=== PATIENT | female | born 1970 | race Caucasian/White ===

== ENCOUNTER 2017-03-04 17:21 | Observation (INO) | payer OTHER ==
[~2017-03-04] VITALS: Ht 165.1 cm; Wt 100.0 kg
[~2017-03-04 17:21] MED LIST: ONDA4TAB7 OR
[2017-03-04 17:24] VITALS: BP 133/84; PULSE 74; RESP 16; TEMP 98; O2SAT 9; O2SAT 99
[2017-03-04 17:36] VITALS: BP 124/72; PULSE 94; PULSE 97; RESP 18; O2SAT 96
[2017-03-04] MEDS ORDERED: SODIUM CHLORIDE 0.9% FLUSH 10 ML FLUSH IVF PRN (17:45)
[2017-03-04] MEDS ORDERED: LORazepam 2 MG/ML VIAL IV PUSH ONE (17:45)
[2017-03-04] MEDS ORDERED: ASPIRIN 81 MG CHEW TAB PO ONE (17:45)
--- NOTE | 2017-03-04 17:51 | PD ---
HPI . Chest pain Chief Complaint: Chest Pain Time Seen by Provider: 17:34 Travel History International Travel<30 days: No Contact w/Intl Traveler<30days: No Traveled to known affect area: No History of Present Illness HPI Patient presents with chief complaint of chest pain. She states that she was just visiting with her sons for Mother's Day when she developed the chest pain. She reports some lightheadedness prior to the onset of the chest pain. The chest pain started an hour ago. It has been continuous. She rates her pain as 0/10. She reports associated diaphoresis and nausea. She denies any previous similar history. She has not noticed any exacerbating or relieving factors. She does state that she's noticed that her dizziness is worse on lying down and bilateral sitting up. She does describe the dizziness as spinning. Pertinent history is breast cancer. She states that she echos periodically to assess the function of her heart. She believes that her last echo was about 2 years ago and was normal. She states that these are all done at a [facility] in [place]. [facility] Past Medical History Cancer: Yes (BREAST) Cirrhosis: No Diminished Hearing: No Immunizations Current: Yes Sickle Cell Disease: No Tetanus Vaccination: Unknown Influenza Vaccination: No ?: Not LMP: 2007 Past Surgical History Hysterectomy: Yes Other Surgery: Yes (BILATERAL MASTECTOMY WITH RECONSTRUCTIONS ) Social History Alcohol Use: Yes (rarely) Tobacco Use: No (Quit ) Substance Use: No Allergies-Medications (Allergen,Severity, Reaction): Coded Allergies: Hydrocodone (Verified Allergy, Unknown, n/v, 03/04/17) Reported Meds & Prescriptions Reported Meds & Active Scripts Active Reported Naproxen 500 Mg Tab 500 Mg PO BID Levothyroxine (Levothyroxine Sodium) 150 Mcg Tab 150 Mcg PO DAILY Melatonin 3 Mg Tab 3 Mg PO HS Zantac (Ranitidine HCl) 150 Mg Tab 150 Mg PO BID Effexor (Venlafaxine HCl) 75 Mg Tab 75 Mg PO DAILY 14 Days After the 14 days increase doseage to 2 tablets (150mg) daily x 16 days Amphetamine-Dextroamphetamine 10 Mg Tab 5 Mg PO DAILY Avoid late evening doses. Space doses at least 4 to 6 hours if more than once/day dosing. Simvastatin 40 Mg Tab 20 Mg PO HS Cordran Tape (Flurandrenolide) 4 Mcg/Sqcm Tape 4 Mcg TOPICAL DAILY Apply to affected area(s) Review of Systems Except as stated in HPI: all other systems reviewed are Neg General / Constitutional: Positive: Other (diaphoresis), No: Fever, Chills Eyes: No: Blurred Vision HENT: Positive: Vertigo Cardiovascular: Positive: Chest Pain or Discomfort Respiratory: Positive: Shortness of Breath Gastrointestinal: Positive: Nausea Psychiatric: Positive: Anxiety Physical Exam Narrative GENERAL: Tearful. Extremely anxious appearing. SKIN: Warm and dry. HEAD: Atraumatic. Normocephalic. EYES: Pupils equal and round. Extraocular movements are intact. ENT: No nasal bleeding or discharge. Mucous membranes pink and moist. NECK: Trachea midline. Neck is supple. CARDIOVASCULAR: Regular rate and rhythm. Heart sounds are normal. RESPIRATORY: No accessory muscle use. Lungs are clear with good air movement throughout. Chest wall is nontender. GASTROINTESTINAL: Abdomen soft, non-tender, nondistended. MUSCULOSKELETAL: No obvious deformities. No edema. NEUROLOGICAL: Awake and alert. No obvious cranial nerve deficits. Motor grossly within normal limits. Normal speech. PSYCHIATRIC: Appropriate mood and affect; insight and judgment normal. Data Data Last Documented VS Vital Signs Date Time Temp Pulse Resp B/P Pulse Ox O2 Delivery O2 Flow Rate FiO2 03/04/17 17:41 Room Air 03/04/17 17:36 97 18 124/72 96 03/04/17 17:24 98.0 Orders Electrocardiogram (03/04/17 ) Electrocardiogram (03/04/17 17:34) Basic Metabolic Panel (Bmp) (03/04/17 17:34) Ckmb (Isoenzyme) Profile (03/04/17 17:34) Complete Blood Count With Diff (03/04/17 17:34) D-Dimer (03/04/17 17:34) Magnesium (Mg) (03/04/17 17:34) Prothrombin Time / Inr (Pt) (03/04/17 17:34) Act Partial Throm Time (Ptt) (03/04/17 17:34) Troponin I (03/04/17 17:34) Chest, Single Ap (03/04/17 17:34) Ecg Monitoring (03/04/17 17:34) Iv Access Insert/Monitor (03/04/17 17:34) Oximetry (03/04/17 17:34) Aspirin Chew (Aspirin Chew) (03/04/17 17:45) Sodium Chloride 0.9% Flush (Ns Flush) (03/04/17 17:45) Lorazepam Inj (Ativan Inj) (03/04/17 17:45) Ct Brain W/O Iv Contrast(Rout) (03/04/17 17:51) Mri Brain W&W/O Contrast (03/04/17 18:21) Labs Laboratory Tests Test 03/04/17 17:40 White Blood Count 8.3 TH/MM3 Red Blood Count 4.68 MIL/MM3 Hemoglobin 13.6 GM/DL Hematocrit 41.1 % Mean Corpuscular Volume 87.7 FL Mean Corpuscular Hemoglobin 29.2 PG Mean Corpuscular Hemoglobin 33.2 % Concent Red Cell Distribution Width 12.6 % Platelet Count 211 TH/MM3 Mean Platelet Volume 10.8 FL Neutrophils (%) (Auto) 61.8 % Lymphocytes (%) (Auto) 30.3 % Monocytes (%) (Auto) 6.6 % Eosinophils (%) (Auto) 0.9 % Basophils (%) (Auto) 0.4 % Neutrophils # (Auto) 5.1 TH/MM3 Lymphocytes # (Auto) 2.5 TH/MM3 Monocytes # (Auto) 0.5 TH/MM3 Eosinophils # (Auto) 0.1 TH/MM3 Basophils # (Auto) 0.0 TH/MM3 CBC Comment DIFF FINAL Differential Comment MDM Medical Decision Making Medical Screen Exam Complete: Yes Emergency Medical Condition: Yes Medical Record Reviewed: Yes Interpretation(s) EKG shows a sinus rhythm. No acute ischemic changes. Differential Diagnosis Differential diagnosis of chest pain includes but is not limited to musculoskeletal pain, pulmonary embolism, acute coronary syndrome, pneumonia, pleurisy Differential diagnosis of dizziness includes but is not limited to vertigo, dehydration, acute blood loss, sepsis, ACS Narrative Course Patient presents with the chief complaint of chest pain. However, the chest pain was preceded by dizziness. The dizziness is described as vertigo. I have ordered a cardiac workup within a dose of aspirin. However, I have also ordered Ativan. She is very anxious and the Ativan should help both anxiety and vertigo. She could be having chest pain as a result of anxiety which was brought on by vertigo. 6:30 PM The patient continues to deny chest pain. However, her dizziness persists. She states that it is better following the Ativan but is still there. Last Impressions Head CT 03/04/17 2035 Signed Impressions: Service Date/Time: Saturday, March 04, 2017 18:02 - CONCLUSION: Probably negative for acute process. Given history of breast cancer MRI may be of benefit. Milan Bethea MD FACR I have explained the patient that the radiologist would like to get an MRI to further evaluate her brain. She is amenable to this. Her care will be checked out to the oncoming physician pending the results of her MRI and her cardiac evaluation. Diagnosis Primary Impression: Chest pain Qualified Code: R07.9 - Chest pain, unspecified type Additional Impressions: Vertigo Anxiety Gay Krueger MD March 04, 2017 17:51
[2017-03-04] MEDS ORDERED: ZANT150T2 PO (18:12)
[2017-03-04] MEDS ORDERED: VENL75TA PO (18:12)
[2017-03-04] MEDS ORDERED: AMPH1TAB PO (18:12)
[2017-03-04] MEDS ORDERED: LEVO150T7 PO (18:12)
[2017-03-04] MEDS ORDERED: SIMV40TA PO (18:12)
[2017-03-04] MEDS ORDERED: [UNRECOGNIZED DRUG - CODE] TOPICAL (18:12)
[2017-03-04] MEDS ORDERED: NAPR500T PO (18:12)
[2017-03-04] MEDS ORDERED: MELA3TAB PO (18:12)
--- NOTE | 2017-03-04 18:16 | RADRPT ---
EXAM DATE/TIME: 03/04/2017 18:02 [facility] COMPARISON: CT BRAIN W/O CONTRAST, May 28, 2011, 5:38. INDICATIONS : Dizziness for three hours. RADIATION DOSE: 39.06 CTDIvol (mGy) MEDICAL HISTORY : Carcinoma, breast. traumatic brain injury SURGICAL HISTORY : Mastectomy, bilateral. Hysterectomy. ENCOUNTER: Initial ACUITY: 1 day PAIN SCALE: 0/10 LOCATION: cranial TECHNIQUE: Multiple contiguous axial images were obtained of the head. Using automated exposure control and adj ustment of the mA and/or kV according to patient size, radiation dose was kept as low as reasonably a chievable to obtain optimal diagnostic quality images. FINDINGS: CEREBRUM: The ventricles are normal for age. No evidence of midline shift, mass lesion, hemorrhage or acute in farction. No extra-axial fluid collections are seen. POSTERIOR FOSSA: The cerebellum and brainstem are intact. The 4th ventricle is midline. The cerebellopontine angle i s unremarkable. New small rounded calcification is seen about the right CP angle, nonspecific. EXTRACRANIAL: The visualized portion of the orbits is intact. SKULL: The calvaria is intact. No evidence of skull fracture. CONCLUSION: Probably negative for acute process. Given history of breast cancer MRI may be of be nefit. Milan Bethea MD FACR on March 04, 2017 at 18:09 Board Certified Radiologist. This report was verified electronically.
[2017-03-04 18:17] LABS: AUTOMATED NEUTROPHIL # 5.1 TH/MM3 (1.8-7.7); BASOPHIL % 0.4 % (0.0-2.0); EOSINOPHIL # 0.1 TH/MM3 (0-0.4); EOSINOPHIL % 0.9 % (0.0-4.0); HEMATOCRIT 41.1 % (35.0-46.0); HEMO FLAGS DIFF FINAL; LYMPH % 30.3 % (9.0-44.0); LYMPHOCYTE # 2.5 TH/MM3 (1.0-4.8); MEAN CELL VOLUME 87.7 FL (80.0-100.0); MEAN CORPUSCULAR HEMOGLOBIN 29.2 PG (27.0-34.0); MEAN CORPUSCULAR HGB CONC 33.2 % (32.0-36.0); MONO % 6.6 % (0.0-8.0); NEUT % 61.8 % (16.0-70.0); PLATELET COUNT 211 TH/MM3 (150-450); RED BLOOD COUNT 4.68 MIL/MM3 (4.00-5.30); RED CELL DISTRIBUTION WIDTH 12.6 % (11.6-17.2); WHITE BLOOD COUNT 8.3 TH/MM3 (4.0-11.0)
--- NOTE | 2017-03-04 18:29 | RADRPT ---
EXAM DATE/TIME: 03/04/2017 18:14 [facility] COMPARISON: No previous studies available for comparison. INDICATIONS : Chest pain. MEDICAL HISTORY : Carcinoma, breast. SURGICAL HISTORY : Lumpectomy ENCOUNTER: Initial ACUITY: 1 day PAIN SCORE: 3/10 LOCATION: Left chest FINDINGS: A single view of the chest demonstrates the lungs to be symmetrically aerated without evidence of mas s, infiltrate or effusion. The cardiomediastinal contours are unremarkable. Osseous structures are intact. CONCLUSION: No acute disease. Milan Bethea MD FACR on March 04, 2017 at 18:27 Board Certified Radiologist. This report was verified electronically.
[2017-03-04 18:35] LABS: APTT (PATIENT) 25.3 SEC (24.3-30.1); PROTHROMBIN TIME - PATIENT 10.6 SEC (9.8-11.6)
[2017-03-04 18:51] LABS: ANION GAP 8 MEQ/L (5-15); BICARBONATE 26.6 MEQ/L (21.0-32.0); BLOOD UREA NITROGEN 16 MG/DL (7-18); CHLORIDE 106 MEQ/L (98-107); GLOMERULAR FILTRATION RATE 71 ML/MIN (>89); POTASSIUM 3.8 MEQ/L (3.5-5.1); SODIUM (NA) 141 MEQ/L (136-145)
[2017-03-04 18:53] LABS: CREATINE KINASE 57 U/L (26-192)
[2017-03-04] MEDS ORDERED: GADODIAMIDE PF 287 MG/ML 20 ML VIAL (for RAD MRI) IV ONE (19:04)
--- NOTE | 2017-03-04 19:08 | PD ---
Data Data Last Documented VS Vital Signs Date Time Temp Pulse Resp B/P Pulse Ox O2 Delivery O2 Flow Rate FiO2 03/04/17 19:25 95 15 95 Room Air 03/04/17 19:23 125/78 03/04/17 17:24 98.0 Orders Electrocardiogram (03/04/17 ) Electrocardiogram (03/04/17 17:34) Basic Metabolic Panel (Bmp) (03/04/17 17:34) Ckmb (Isoenzyme) Profile (03/04/17 17:34) Complete Blood Count With Diff (03/04/17 17:34) D-Dimer (03/04/17 17:34) Magnesium (Mg) (03/04/17 17:34) Prothrombin Time / Inr (Pt) (03/04/17 17:34) Act Partial Throm Time (Ptt) (03/04/17 17:34) Troponin I (03/04/17 17:34) Chest, Single Ap (03/04/17 17:34) Ecg Monitoring (03/04/17 17:34) Iv Access Insert/Monitor (03/04/17 17:34) Oximetry (03/04/17 17:34) Aspirin Chew (Aspirin Chew) (03/04/17 17:45) Sodium Chloride 0.9% Flush (Ns Flush) (03/04/17 17:45) Lorazepam Inj (Ativan Inj) (03/04/17 17:45) Ct Brain W/O Iv Contrast(Rout) (03/04/17 17:51) Mri Brain W&W/O Contrast (03/04/17 18:21) Gadodiamide Pf Inj (Omniscan Pf Inj) (03/04/17 19:04) Admit Order (Ed Use Only) (03/04/17 19:36) Activity Bed Rest With Brp (03/04/17 19:36) Vital Signs (Adult) Q4H (03/04/17 19:36) Cardiac Rhythm .As Directed (03/04/17 19:36) Notify Dr: Other .PRN (03/04/17 19:36) Notify Parameters (03/04/17 19:36) Resp Oxygen Nasal Cannula (03/04/17 ) Diet Npo (03/05/17 Breakfast) Ckmb (Isoenzyme) Profile (03/04/17 20:40) Ckmb (Isoenzyme) Profile (03/04/17 23:40) Troponin I (03/04/17 20:40) Troponin I (03/04/17 23:40) Electrocardiogram (03/04/17 20:40) Electrocardiogram (03/04/17 23:40) ^ Obtain (03/04/17 19:36) Sodium Chloride 0.9% Flush (Ns Flush) (03/04/17 19:45) Sodium Chloride 0.9% Flush (Ns Flush) (03/04/17 21:00) Acetaminophen (Tylenol) (03/04/17 19:45) Ondansetron Inj (Zofran Inj) (03/04/17 19:45) Turner Off / Telemetry LELIA.Q8H (03/04/17 19:36) Labs Laboratory Tests Test 03/04/17 17:40 White Blood Count 8.3 TH/MM3 Red Blood Count 4.68 MIL/MM3 Hemoglobin 13.6 GM/DL Hematocrit 41.1 % Mean Corpuscular Volume 87.7 FL Mean Corpuscular Hemoglobin 29.2 PG Mean Corpuscular Hemoglobin 33.2 % Concent Red Cell Distribution Width 12.6 % Platelet Count 211 TH/MM3 Mean Platelet Volume 10.8 FL Neutrophils (%) (Auto) 61.8 % Lymphocytes (%) (Auto) 30.3 % Monocytes (%) (Auto) 6.6 % Eosinophils (%) (Auto) 0.9 % Basophils (%) (Auto) 0.4 % Neutrophils # (Auto) 5.1 TH/MM3 Lymphocytes # (Auto) 2.5 TH/MM3 Monocytes # (Auto) 0.5 TH/MM3 Eosinophils # (Auto) 0.1 TH/MM3 Basophils # (Auto) 0.0 TH/MM3 CBC Comment DIFF FINAL Differential Comment Prothrombin Time 10.6 SEC Prothromb Time International 1.0 RATIO Ratio Activated Partial 25.3 SEC Thromboplast Time D-Dimer Quantitative (PE/DVT) 0.37 MG/L FEU Sodium Level 141 MEQ/L Potassium Level 3.8 MEQ/L Chloride Level 106 MEQ/L Carbon Dioxide Level 26.6 MEQ/L Anion Gap 8 MEQ/L Blood Urea Nitrogen 16 MG/DL Creatinine 0.86 MG/DL Estimat Glomerular Filtration 71 ML/MIN Rate Random Glucose 107 MG/DL Calcium Level 9.0 MG/DL Magnesium Level 2.0 MG/DL Total Creatine Kinase 57 U/L Troponin I LESS THAN 0.02 NG/ML [facility] Medical Record Reviewed: Yes Supervised Visit with WYATT: No Interpretation(s) Last Impressions Brain MRI 03/04/17 1821 Signed Impressions: Service Date/Time: Saturday, March 04, 2017 18:54 - CONCLUSION: Negative for metastatic disease. I do not see an etiology for the patient's vertigo. Mastoids are clear. Seventh and eighth nerves appear normal. Milan Bethea MD FACR Head CT 03/04/17 1751 Signed Impressions: Service Date/Time: Saturday, March 04, 2017 18:02 - CONCLUSION: Probably negative for acute process. Given history of breast cancer MRI may be of benefit. Milan Bethea MD FACR Chest X-Ray 03/04/17 4354 Signed Impressions: Service Date/Time: Saturday, March 04, 2017 18:14 - CONCLUSION: No acute disease. Milan Bethea MD FACR Narrative Course During the course of the patients emergency department visit, the patients history, examination, and differential diagnosis were reviewed with the patient. The patient had IV access obtained and blood work sent for analysis. The patient's case was checked out to me by . She requested that I review the patient's MRI results and disposition the patient. Her plan was to admit the patient to the chest pain center for rule out serial cardiac enzyme protocol and stress testing to follow-up. The patient was initially provided Ativan, aspirin by Dr. Krueger. The patients laboratory studies were reviewed and remarkable for a CBC that is within normal limits, basic metabolic profile shows a glucose of 107, CPK 57, troponin I less than 0.02. PT PTT within normal limits, d-dimer is 0.37 decreasing likelihood of pulmonary embolism in this patient with no other significant risk factors. Radiology studies were reviewed and remarkable for a chest x-ray that shows no acute abnormality. CT scan of the brain shows a probable negative CT, however given the history of breast cancer MRI may be of benefit. MRI of the brain showed no acute abnormality. The patient is agreeable with plan to proceed with admission to the chest pain center for rule out serial cardiac enzyme protocol and stress testing to follow. The patient reports feeling improved and repeat evaluation by me. The patients results were discussed with the patient, including the plan of care. I explained that further testing and/ or monitoring is indicated based on the patients history, examination, and/ or laboratory findings. Therefore, I recommended admission for additional evaluation. The patient expressed understanding and was agreeable with this plan. The patient was admitted to the hospital in stable condition and sent to a bed under the care of the chest pain center. Diagnosis Primary Impression: Chest pain Qualified Code: R07.9 - Chest pain, unspecified type Additional Impressions: Anxiety Vertigo Admitting Information Admitting Physician Requests: Amanda Mariscal MD March 04, 2017 19:08
[2017-03-04 19:23] VITALS: BP 125/78; PULSE 94; RESP 15; O2SAT 95
--- NOTE | 2017-03-04 19:25 | RADRPT ---
EXAM DATE/TIME: 03/04/2017 18:54 [facility] COMPARISON: No previous studies available for comparison. INDICATIONS : Metastatic disease. CONTRAST: 20 cc Omniscan (gadodiamide) IV MEDICAL HISTORY : Carcinoma, breast. SURGICAL HISTORY : Hysterectomy. Mastectomy, bilateral. ENCOUNTER: Initial ACUITY: 1 day PAIN SCORE: 0/10 LOCATION: cranial TECHNIQUE: Multiplanar, multisequence MRI of the brain was performed both prior to and following the administrat ion of paramagnetic contrast. FINDINGS: CEREBRUM: The ventricles are normal for age. No evidence of midline shift, mass lesion, hemorrhage or acute in farction. No extraaxial fluid collections are seen. The pituitary gland and suprasellar cistern are normal in configuration. WHITE MATTER: No significant signal abnormalities are seen in the white matter. POSTERIOR FOSSA: The cerebellum and brainstem are intact. The 4th ventricle is midline. The cerebellopontine angle is unremarkable. The cerebellar tonsils are normal in position. DIFFUSION IMAGING: No focal areas of restricted diffusion are seen. No evidence of acute infarction. EXTRACRANIAL: The visualized portions of the orbits and paranasal sinuses are unremarkable. POST-CONTRAST: No abnormal areas of parenchymal or dural enhancement. No evidence of blood-brain barrier breakdown. CONCLUSION: Negative for metastatic disease. I do not see an etiology for the patient's vertigo. Mastoids are clear. Seventh and eighth nerves appear normal. Milan Bethea MD FACR on March 04, 2017 at 19:21 Board Certified Radiologist. This report was verified electronically.
[2017-03-04 19:41] VITALS: O2SAT 95
[2017-03-04] MEDS ORDERED: SODIUM CHLORIDE 0.9% FLUSH 10 ML FLUSH IV FLUSH PRN (19:45)
[2017-03-04] MEDS ORDERED: ACETAMINOPHEN 500 MG CPLT PO PRN (19:45)
[2017-03-04] MEDS ORDERED: ONDANSETRON HCL 4 MG/2 ML VIAL IV PRN (19:45)
[2017-03-04] MEDS ORDERED: ONDANSETRON HCL 4 MG/2 ML VIAL IV PUSH ONE (20:15)
[2017-03-04 21:40] LABS: CREATINE KINASE 44 U/L (26-192)
[2017-03-04 21:45] VITALS: PULSE 84
[2017-03-04 23:45] VITALS: BP 119/60; PULSE 75; RESP 20; TEMP 98; O2SAT 94
[2017-03-05] MEDS: SODIUM CHLORIDE 0.9% FLUSH 10 ML FLUSH IV FLUSH SCH ×2 (00:06→09:16)
[2017-03-05 00:11] VITALS: PULSE 70
[2017-03-05 00:41] LABS: CREATINE KINASE 48 U/L (26-192)
[2017-03-05 03:11] VITALS: PULSE 61
[2017-03-05 04:24] VITALS: BP 102/63; PULSE 65; RESP 19; TEMP 98; O2SAT 96
[2017-03-05] MEDS ORDERED: NITROGLYCERIN 0.4 MG SL 25 TABS/BTL SL PRN (07:30)
[2017-03-05 07:44] VITALS: BP 119/63; PULSE 81; RESP 20; TEMP 98.2; O2SAT 96
--- NOTE | 2017-03-05 08:53 | HHI.HP ---
HPI Primary Care Physician No Primary Care Physician Chief Complaint Chest pain and dizziness History of Present Illness 46-year-old female history of hyperlipidemia, remote breast cancer, chronic back and neck pain, and hypothyroidism presents to emergency room for further evaluation of chest discomfort and dizziness. Sunday prior to going to sleep she felt dizzy. Upon awakening she states "I didn't feel well." Described her head spinning for approximately 3 hours. Afternoon she developed substernal chest pressure as though "an elephant was sitting on my chest" radiation to her left shoulder and left arm, duration of shoulder and arm pain lasted hours. Left arm was "numb for a few minutes." No associated symptoms. Breathing did not make pain better or worse. No known precipitating or relieving factors. Currently she is chest pain-free. Review of Systems General: No fatigue,weakness, fever, chills, recent illness, recent travel, or change in appetite HEENT: No MOMIN, no vision changes, no nasal congestion or drainage, no dysphasia. CV: As stated above. No current chest pain or pressure. No palpitations, intermittent leg pain, dizziness. RESP: No SOB, cough, wheeze, or asthma GI: No nausea, vomiting, bowel changes, diarrhea, constipation, pain, distention , melena, blood in the stool. No unintentional weight gain or weight loss : No dysuria, urgency, frequency EXT: No lower leg edema, no paraesthesias MS: Chronic back and neck pain unchanged. No discomfort or change in ROM NEURO: Positional dizziness, onset Sunday afternoon. No change in memory, difficulty with balance, LOC, motor/sensory deficits. PSYCH: No anxiety or depression SKIN: No rashes, no concerning lesions Past Family Social History Allergies: Coded Allergies: Hydrocodone (Verified Allergy, Unknown, n/v, 03/04/17) Past Medical History Hypothyroidism, hyperlipidemia, GERD, depression, chronic back and neck pain, breast cancerin remission 7 years. No chemotherapy or radiation states cancer removed surgically. Past Surgical History Bilateral mastectomy, hysterectomy Reported Medications Naproxen 500 Mg Tab 500 Mg PO BID Levothyroxine (Levothyroxine Sodium) 150 Mcg Tab 150 Mcg PO DAILY Melatonin 3 Mg Tab 3 Mg PO HS Zantac (Ranitidine HCl) 150 Mg Tab 150 Mg PO BID Amphetamine-Dextroamphetamine 10 Mg Tab 5 Mg PO DAILY Avoid late evening doses. Space doses at least 4 to 6 hours if more than once/day dosing. (States he uses only on work days.) Simvastatin 40 Mg Tab 20 Mg PO HS Cordran Tape (Flurandrenolide) 4 Mcg/Sqcm Tape 4 Mcg TOPICAL DAILY Apply to affected area(s) Active Ordered Medications Current Medications Medications (Trade) Dose Ordered Sig/Ally Route Start Time Stop Time Status Last Admin (Tylenol) 500 mg Q4H PRN PO 03/04/17 19:45 (Zofran Inj) 4 mg Q6H PRN IV 03/04/17 19:45 (Nitrostat Sl) 0.4 mg Q5M PRN SL 03/05/17 07:30 (Aspirin) 325 mg DAILY PO 03/05/17 09:00 (Synthroid) 150 mcg DAILY@0600 PO 03/05/17 09:00 (Naprosyn) 500 mg BID PO 03/05/17 09:00 (Pepcid) 20 mg BID PO 03/05/17 09:00 (Pravachol) 40 mg HS PO 03/05/17 21:00 (Effexor Xr) 75 mg DAILY PO 03/05/17 09:00 Family History Brother cardiac stent placed in his mid 40s. Social History No known diabetes or hypertension. Endorses recent diagnosis of hyperlipidemia. Alcohol occasionally. Denies any drug use. States she was a "social smoker while in the ." Quit smoking 20 years ago. 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 Tries to remain active despite her chronic pain issues. Past cardiac testing No formal cardiac testing. Physical Exam Vital Signs Vital Signs Date Time Temp Pulse Resp B/P Pulse Ox O2 Delivery O2 Flow Rate FiO2 03/05/17 07:44 98.2 81 20 119/63 96 03/05/17 04:24 98.0 65 19 102/63 96 03/05/17 03:11 61 03/05/17 00:11 70 03/04/17 23:45 98.0 75 20 119/60 94 03/04/17 21:45 84 03/04/17 19:41 95 03/04/17 19:25 95 15 95 Room Air 03/04/17 19:23 94 15 125/78 95 Room Air 03/04/17 17:41 Room Air 03/04/17 17:36 97 18 124/72 96 Room Air 03/04/17 17:36 94 18 124/72 96 Room Air 03/04/17 17:24 98.0 74 16 133/84 99 Physical Exam GENERAL: Alert WN, WD, NAD, pleasant, moderately obese female HEAD: NC, AT EYES: Sclera clear, conjunctiva without injection, pupils equal and round NECK: Supple, no masses, trachea midline CV: RRR, without murmur, rub, gallop, no JVD, S1-S2 no S3-S4. RESP: Clear lungs throughout bilateral, no crackles, wheeze, rhonchi, symmetrical chest rise, nonlabored, able to speak in full sentences ABD: Soft, NT, ND, no masses, obese, positive bowel tones EXT: Pulses +24, no dependent edema MS: Normal tone 4 extremities, nontender, no obvious deformities, full range of motion NEURO: CN II through CN XII grossly intact, motor strength 5/5, gait WNL PSYCH: A+O 3, pleasant affect, appropriate speech, appropriate mood and affect , insight and judgment SKIN: Normal turgor, normal texture Laboratory Laboratory Tests Test 03/04/17 03/04/17 03/05/17 17:40 20:40 00:05 White Blood Count 8.3 Red Blood Count 4.68 Hemoglobin 13.6 Hematocrit 41.1 Mean Corpuscular Volume 87.7 Mean Corpuscular Hemoglobin 29.2 Mean Corpuscular Hemoglobin 33.2 Concent Red Cell Distribution Width 12.6 Platelet Count 211 Mean Platelet Volume 10.8 Neutrophils (%) (Auto) 61.8 Lymphocytes (%) (Auto) 30.3 Monocytes (%) (Auto) 6.6 Eosinophils (%) (Auto) 0.9 Basophils (%) (Auto) 0.4 Neutrophils # (Auto) 5.1 Lymphocytes # (Auto) 2.5 Monocytes # (Auto) 0.5 Eosinophils # (Auto) 0.1 Basophils # (Auto) 0.0 CBC Comment DIFF FINAL Differential Comment Prothrombin Time 10.6 Prothromb Time International 1.0 Ratio Activated Partial 25.3 Thromboplast Time D-Dimer Quantitative (PE/DVT) 0.37 Sodium Level 141 Potassium Level 3.8 Chloride Level 106 Carbon Dioxide Level 26.6 Anion Gap 8 Blood Urea Nitrogen 16 Creatinine 0.86 Estimat Glomerular Filtration 71 Rate Random Glucose 107 Calcium Level 9.0 Magnesium Level 2.0 Total Creatine Kinase 57 44 48 Troponin I LESS THAN 0.02 LESS THAN 0.02 LESS THAN 0.02 Result Diagram: 03/04/17 1740 03/04/17 1740 Imaging Last Impressions Brain MRI 03/04/17 1821 Signed Impressions: Service Date/Time: Saturday, March 04, 2017 18:54 - CONCLUSION: Negative for metastatic disease. I do not see an etiology for the patient's vertigo. Mastoids are clear. Seventh and eighth nerves appear normal. Milan Bethea MD FACR Head CT 03/04/17 1751 Signed Impressions: Service Date/Time: Saturday, March 04, 2017 18:02 - CONCLUSION: Probably negative for acute process. Given history of breast cancer MRI may be of benefit. Milan Bethea MD FACR Chest X-Ray 03/04/17 1734 Signed Impressions: Service Date/Time: Saturday, March 04, 2017 18:14 - CONCLUSION: No acute disease. Milan Bethea MD FACR Course EKGs 3 EKGs show normal sinus rhythm, nonspecific T-wave changes. Assessment and Plan Assessment and Plan #1 Chest painadmitted to chest pain center. Ruled out with 3 sets of cardiac enzymes, EKGs, and monitored overnight. Seen and evaluated by Dr. Harshal Dobbs. Complete chemical stress test. Patient is agreeable to plan of care. If stress test is unremarkable, will discharge later this afternoon. #2 Musculoskeletal paincontinue naproxen 500 mg twice a day #[address] and MRI unremarkable. Follow with PCP. Discussed use of [id number] meclizine if vertigo continues. #4 Hypothyroidismcontinue levothyroxine #5 Hyperlipidemiacontinue simvastatin #6 GERDcontinue ZaNiharika Garcia March 05, 2017 08:53
[2017-03-05] MEDS ORDERED: LEVOTHYROXINE SODIUM 150 MCG TAB PO SCH (09:00)
[2017-03-05] MEDS ORDERED: FAMOTIDINE 20 MG TAB PO SCH (09:00)
[2017-03-05] MEDS ORDERED: ASPIRIN 325 MG TAB PO SCH (09:00)
[2017-03-05] MEDS ORDERED: VENLAFAXINE HCL XR 75 MG CAP PO SCH (09:00)
[2017-03-05] MEDS ORDERED: NAPROXEN 500 MG TAB PO SCH (09:00)
[2017-03-05 09:29] VITALS: O2SAT 92
[2017-03-05] MEDS ORDERED: REGADENOSON INJ 0.4 MG/5 ML SYR ONE (11:06)
--- NOTE | 2017-03-05 12:17 | RADRPT ---
EXAM DATE/TIME: 03/05/2017 10:21 [place] COMPARISON: No previous studies available for comparison. INDICATIONS : Chest pain with dyspnea, nausea, diaphoresis and lightheaded. Angina. DOSE: 35 mCi Tc99m Myoview at stress. 11 mCi Tc99m Myoview at rest. 0.4 mg Lexiscan STRESS SYMPTOMS: Nausea and headache. EJECTION FRACTION: > 70% MEDICAL HISTORY : Carcinoma, breast. SURGICAL HISTORY : Hysterectomy. ENCOUNTER: Initial ACUITY: 1 day PAIN SCALE: 6/10 LOCATION: Substernal chest TECHNIQUE: The patient underwent pharmacologic stress with infusion of prescribed dose. Continuous ECG tracing was monitored during stress. Gated SPECT imaging was performed after stress and conventional SPECT i maging was performed at rest. The examination was performed on a SPECT/CT scanner, both attenuation and non-corrected datasets were reviewed. FINDINGS: DISTRIBUTION: The maximum perfused segment at stress is in the inferior wall. PERFUSION STUDY: The pattern of perfusion at stress is within normal limits. GATED STUDY: There is intact wall motion and thickening without hypokinetic or dyskinetic segments. CONCLUSION: Unremarkable myocardial perfusion examination. RISK CATEGORY: Low Richard Phelan MD on March 05, 2017 at 12:13 Board Certified Radiologist. This report was verified electronically.
--- NOTE | 2017-03-05 12:25 | HHI.DCPOC ---
Discharge Care Plan Diagnosis: (1) Atypical chest pain (2) Vertigo Goals to Promote Your Health * To prevent worsening of your condition and complications * To maintain your health at the optimal level Directions to Meet Your Goals Take your medications as prescribed Follow your dietary instruction Follow activity as directed Keep your appointments as scheduled Take your immunizations and boosters as scheduled If your symptoms worsen call your PCP, if no PCP go to Urgent Care Center or Emergency Room Smoking is Dangerous to Your Health. Avoid second hand smoke Call the 24-hour hour crisis hotline for domestic abuse at N[facility]ar[facility] Gregorio March 05, 2017 12:25
[2017-03-05] MEDS ORDERED: MECL12.574 PO (12:52)
--- NOTE | 2017-03-05 13:48 | EKG ---
Date Performed: 03/04/2017 Time Performed: 23:41:45 PTAGE: 46 years EKG: Sinus rhythm LOW QRS VOLTAGE IN PRECORDIAL LEADS MODERATE T-WAVE ABNORMALITY, CONSIDER ANTERIOR ISCHEMIA ABNORMAL ECG PREVIOUS TRACING : 03/04/2017 20.45 Since previous tracing, no significant change noted DOCTOR: Harshal Dobbs Interpretating Date/Time 03/05/2017 13:47:13
--- NOTE | 2017-03-05 13:49 | EKG ---
Date Performed: 03/04/2017 Time Performed: 20:45:25 PTAGE: 46 years EKG: Sinus rhythm INCOMPLETE RIGHT BUNDLE BRANCH BLOCK NON SPECIFIC T WAVE CHANGES ABNORMAL ECG PREVIOUS TRACING : 03/04/2017 17.32 Since previous tracing, no significant change noted DOCTOR: Harshal Dobbs Interpretating Date/Time 03/05/2017 13:48:16
--- NOTE | 2017-03-05 13:50 | EKG ---
Date Performed: 03/04/2017 Time Performed: 17:32:41 PTAGE: 46 years EKG: Sinus rhythm NON SPECIFIC T WAVE CHANGES NO PREVIOUS TRACING DOCTOR: Harshal Dobbs Interpretating Date/Time 03/05/2017 13:48:54
--- NOTE | 2017-03-05 13:51 | TR ---
Date Performed: 03/05/2017 Time Performed: 10:56:36 DOCTOR: Harshal Dobbs DRUG LIST: CLINICAL HISTORY: REASON FOR TEST: REASON FOR ENDING: OBSERVATION: CONCLUSION: Lexiscan stress test was performed under standard four minute protocol. Radionuclid e was injected one minute prior to ending the test. No electrocardiographic abormalities were present to suggest ischemia. Nuclear imaging and interpretation are pending. COMMENTS:
[2017-03-05] MEDS ORDERED: PRAVASTATIN SOD 40 MG TAB PO SCH (21:00)
== END 2017-03-05 13:42 | disposition home or self-care (01) ==
LOC: NEPC 17:21 → NEDA 19:39 → NEPFCDU 21:18
PROVIDERS: ADMIT Family Medicine; ATTEND Family Medicine
DX: R07.9 Chest pain, unspecified (principal); R42 Dizziness and giddiness; E78.5 Hyperlipidemia, unspecified; E03.9 Hypothyroidism, unspecified; K21.9 Gastro-esophageal reflux disease without esophagitis; G89.29 Other chronic pain; M54.2 Cervicalgia; M54.9 Dorsalgia, unspecified; F41.9 Anxiety disorder, unspecified; F32.9 Major depressive disorder, single episode, unspecified; Z85.3 Personal history of malignant neoplasm of breast; Z90.13 Acquired absence of bilateral breasts and nipples; Z87.891 Personal history of nicotine dependence; Z88.5 Allergy status to narcotic agent
CPT/HCPCS: 70450; 70553; 71010; 78452; 80048; 82550; 83735; 84484; 85025; 85379; 85610; 85730; 93005; 93017; 96374; 99285; A9502; A9579; G0378; J2060; J2785